=== PATIENT | female | born 1960 | race Caucasian/White ===

== ENCOUNTER 2017-03-21 09:09 | Emergency (ER) | payer MEDICARE, SELFPAY | END 2017-03-21 12:45 | disposition home or self-care (01) | PROVIDERS: Emergency Provider Emergency Medicine; Family Provider Internal Medicine Cardiovascular Disease; Visit Provider Emergency Medicine | DX: J44.1 Chronic obstructive pulmonary disease with (acute) exacerbation (principal); F17.210 Nicotine dependence, cigarettes, uncomplicated | CPT/HCPCS: 71020; 80053; 85025; 87040; 87070; 87275; 87276; 87430; 94640; 96374; 96375; 99284 ==

== ENCOUNTER 2019-07-03 15:40 | Emergency (ER) | payer MEDICARE, SELFPAY ==
[2019-07-03] VITALS (7 sets, daily range): BP systolic 90–121; BP diastolic 53–87; PULSE 100–120; RESP 16–24; TEMP 35.5–36.5; O2SAT 91–100; BMI 15.0
--- NOTE | 2019-07-03 15:44 | XR_ITS ---
PROCEDURE: XR CHEST PORTABLE CLINICAL HISTORY: SHORTNESS OF BREATH COMPARISON: CXR CHEST(2 VIEWS-NOT PORTABLE) from 03/21/2017 CXR2V XR chest 2V from 05/01/2018 FINDINGS: The cardiomediastinal silhouette and pulmonary vascularity are within normal limits. Changes of COPD. There is some patchy density in the right upper lobe centrally and may be due to an area of atelectasis or infiltrate. There is scarring in the right apex. Bilateral nipple shadows are present No acute bony abnormalities. IMPRESSION: COPD with chronic changes with patchy atelectasis or infiltrate versus fibrotic change in the right upper lobe Dictated by: Checo Ruiz MD 07/03/2019 16:11 Electronically signed by Checo Ruiz MD in [place] 07/03/2019 16:11
[2019-07-03 16:41] LABS: Basophils % 0.1 % (0.1-2.0); Eosinophils # 0.1 K/mm3 (0.0-0.4); Eosinophils % 0.5 % (0.1-12.0); Hematocrit 42.7 % (37.0-47.0); Hemoglobin 14.1 g/dL (12.2-16.2); Lymphocytes # 0.3 K/mm3 (0.7-4.5); Lymphocytes % 2.1 % (10-50); Mean Corpuscular HGB Conc 32.9 g/dL (31.8-35.4); Mean Corpuscular Hemoglobin 31.9 pg (27.0-31.2); Mean Corpuscular Volume 96.8 fl (81-99); Mean Platelet Volume 8.7 fl (7.4-10.4); Monocytes # 0.5 K/mm3 (0.1-1.0); Monocytes % 3.6 % (1.7-9.3); Neutrophils # 12.8 K/mm3 (1.8-7.8); Neutrophils % 93.7 % (37.0-80.0); Platelet Count 260 K/mm3 (142-424); Red Blood Count 4.41 M/mm3 (4.20-5.40); Red Cell Distribution Width 12.9 % (11.5-17.5); White Blood Count 13.7 K/mm3 (4.8-10.8)
[2019-07-03 16:43] LABS: MANUAL DIFFERENTIAL MANUAL DIFFERENTIAL (MANUAL DIFF)
[2019-07-03 16:59] LABS: Lymphocytes % 5 % (10-50); Monocytes % 1 % (2-9); Neutrophils % 94 % (42-76); Platelet Estimate Normal; RBC Morphology Normal; Total Cells Counted 100
[2019-07-03 17:05] LABS: Albumin Level 3.9 g/dl (3.5-5.0); Albumin/Globulin Ratio 1.5 (1.1-1.8); Alkaline Phosphatase 79 U/L (38-126); Aspartate Amino Transferase 51 U/L (14-36); Bilirubin,Total 0.4 mg/dl (0.2-1.3); Blood Urea Nitrogen 27 mg/dl (7-17); Calcium 8.8 mg/dl (8.4-10.2); Chloride 88 mmol/L (98-107); Creatinine Clearance Estimated 114 mL/min (50-200); Estimated Glomerular Filt Rate 227 ml/min (>60); GFR (African American) 275 ML/MIN (>60); Globulin 2.6 g/dL (1.3-3.2); Glucose 129 mg/dl (74-100); Potassium 4.3 mmoL/L (3.5-5.1); Sodium 135 mmol/L (136-145); Total Protein,Serum 6.5 g/dl (6.3-8.2)
--- NOTE | 2019-07-03 17:16 | HMH.EDGENADL ---
ED Disposition Condition on Discharge: Good - Critical Care Critical Care Time: No <Fabricio Dillon O - Last Filed: 07/03/19 20:47> <Sharath Mariano - Last Filed: 07/04/19 07:41> Clinical Impression: Shortness of breath, Acute exacerbation of chronic obstructive airways disease Disposition: Home, Self-Care Instructions: DI for Chronic Obstructive Pulmonary Disease Additional Instructions: see pcp for follow up Referrals: Provider,Referral, MD [Primary Care Provider] - Attestation: On 07/03/19, the high probability of a clinically significant, sudden or life threatening deterioration of the following system(s) required my full and direct attention, intervention and personal management. The time I documented below is in addition to time spent performing reported procedures but includes the following listed in this critical care notation. Medical Decision Making - Alo Inquiry Pt receiving controlled substance: No Alo was queried for this patient: No - Lab Data Result diagrams: 07/03/19 16:24 07/03/19 16:24 <Fabricio Dillon - Last Filed: 07/03/19 20:47> - Lab Data Result diagrams: 07/03/19 16:24 07/03/19 16:24 <Sharath Mariano S - Last Filed: 07/04/19 07:41> Vital Signs: 07/03/19 15:40 07/03/19 16:12 07/03/19 18:00 Temperature 96 F L 97.7 F Temperature Source Oral Oral Pulse Rate [Right Radial] 110 H 120 H Respiratory Rate 17 24 Blood Pressure [Right Arm] 121/79 107/87 L Blood Pressure Mean [Right Arm] 93 93 Blood Pressure Source [Right Arm] Automatic Cuff Blood Pressure Position [Right Arm] Sitting 02 Sat by Pulse Oximetry 91 L 92 L Oxygen Delivery Method Nasal Cannula Nasal Cannula Oxygen Flow Rate (LPM) 2 3 07/03/19 19:57 07/03/19 20:30 07/03/19 21:22 Temperature Temperature Source Pulse Rate [Right Radial] 108 H 102 H 100 H Respiratory Rate 16 16 16 Blood Pressure [Right Arm] 99/68 L 98/59 L 90/53 L Blood Pressure Mean [Right Arm] 78 72 65 Blood Pressure Source [Right Arm] Blood Pressure Position [Right Arm] 02 Sat by Pulse Oximetry 100 100 100 Oxygen Delivery Method Room Air Room Air Room Air Oxygen Flow Rate (LPM) 04/10/20 22:40 07/04/19 00:00 07/04/19 01:00 Temperature Temperature Source Pulse Rate [Right Radial] 101 H 94 H 90 Respiratory Rate 18 16 16 Blood Pressure [Right Arm] 109/59 L 106/58 L 96/61 L Blood Pressure Mean [Right Arm] 75 74 72 Blood Pressure Source [Right Arm] Blood Pressure Position [Right Arm] 02 Sat by Pulse Oximetry 96 98 100 Oxygen Delivery Method Nasal Cannula Nasal Cannula Nasal Cannula Oxygen Flow Rate (LPM) 2 2 2 07/04/19 02:00 07/04/19 03:00 07/04/19 04:00 Temperature Temperature Source Pulse Rate [Right Radial] 100 H 97 H 98 H Respiratory Rate 16 16 16 Blood Pressure [Right Arm] 91/62 L 101/60 L 91/74 L Blood Pressure Mean [Right Arm] 71 73 79 Blood Pressure Source [Right Arm] Blood Pressure Position [Right Arm] 02 Sat by Pulse Oximetry 100 99 100 Oxygen Delivery Method Nasal Cannula Nasal Cannula Nasal Cannula Oxygen Flow Rate (LPM) 2 2 2 07/04/19 05:00 07/04/19 06:00 07/04/19 06:33 Temperature 98.3 F Temperature Source Oral Pulse Rate [Right Radial] 90 94 H Respiratory Rate 16 16 Blood Pressure [Right Arm] 96/67 L 98/77 L Blood Pressure Mean [Right Arm] 76 84 Blood Pressure Source [Right Arm] Blood Pressure Position [Right Arm] 02 Sat by Pulse Oximetry 98 98 Oxygen Delivery Method Nasal Cannula Nasal Cannula Oxygen Flow Rate (LPM) 2 2 - Lab Data Lab Results 07/03/19 16:00: Influenza Type A Ag Negative, Influenza Type B Ag Negative 07/03/19 16:24: WBC 13.7 H, RBC 4.41, Hgb 14.1, Hct 42.7, MCV 96.8, MCH 31.9 H, MCHC 32.9, RDW 12.9, Plt Count 260, MPV 8.7, Neut % (Auto) 93.7 H, Lymph % (Auto) 2.1 L, [place] % (Auto) 3.6, Eos % (Auto) 0.5, Baso % (Auto) 0.1, Neut # (Auto) 12.8 H, Lymph # (Auto) 0.3 L, [place] # (Auto) 0.5, Eos # (Auto) 0.1, Baso # (Auto) 0.
[2019-07-03 17:17] LABS: Alanine Aminotransferase 97 U/L (12-78)
[2019-07-03 17:25] LABS: Anion Gap 13.3 mEq/L (5-15); Carbon Dioxide 38 mmol/L (22.0-30.0)
[2019-07-03 17:31] LABS: Troponin I 0.02 ng/ml (0.00-0.034)
[2019-07-03 18:18] LABS: Lactic Acid 1.4 mmol/L (0.7-2.1)
[2019-07-03 18:30] LABS: Troponin I 0.03 ng/ml (0.00-0.034)
--- NOTE | 2019-07-03 18:30 | PC.NURSE ---
CALLED PT'S VINITA BECAUSE PT STATED THAT HE WOULD PICK HER UP. VINITA ADVISED THAT HE COULD NOT BUT HE WOULD RETURN OUR CALL WITH THE DAUGHTER'S PHONE NUMBER SO WE COULD CALL HER.
--- NOTE | 2019-07-03 18:47 | PC.NURSE ---
SULMA SNEED CALLED DAUGHTER AND DAUGHTER ADVISES THAT SHE WILL NOT BE COMING TO PRE PRESS PROOFER HER MOTHER.
--- NOTE | 2019-07-03 18:59 | PC.NURSE ---
PAGING DR SCHUMACHER
--- NOTE | 2019-07-03 19:40 | PC.NURSE ---
spoke with jarred rider in care management who stated she spoke with ems about transporting the patient and they denied the transfer due to lack of medical necessity. She stated she also reached out to the pt's pcp for suggestions and has not heard back from physician
--- NOTE | 2019-07-03 21:14 | PC.NURSE ---
per MD and care management, pt will board overnight in the ED and care management will be here at 0900 to make arrangements for patients transfer home.
--- NOTE | 2019-07-03 21:20 | PC.NURSE ---
Addendum entered by KRYSTINA Lugo 07/04/19 05:09: spoke with patient about departure plan. pt is aware that care management will be to ed at 0900 to arrange transportation for pt back home. Original Note: pt provided with tv remote and a drink. pt aware with departure plan
--- NOTE | 2019-07-03 21:30 | PC.NURSE ---
pt alert,oriented, x4. verbal with clear speech. no hearing deficits noted. no visual deficits. resp e/u. lungs cta. abd soft, nt/nd. bs +x4 quads. denies dysuria. denies any issues with bowel movements. pt states she is independent at home with her adl's and ambulation. understands the plan of care listed in chart and discussed with her by the er physician. offered snacks and drinks. remote and call light in place. denies additional needs. no acute distress observed.
[2019-07-04] VITALS (10 sets, daily range): BP systolic 91–128; BP diastolic 55–79; PULSE 60–100; RESP 16–18; TEMP 36.6–36.8; O2SAT 98–100
--- NOTE | 2019-07-04 00:01 | PC.NURSE ---
called to patient's room via call light. pt requested a bedpan so she didn't have to get up. voided approx 350ml. noted urine to clothing. assisted to change into gown, and new sheets/blankets provided. pt thankful. call light at bedside. no additional requests at this time. no acute distress observed
--- NOTE | 2019-07-04 02:15 | PC.NURSE ---
pt continues to rest without complaint. no issues noted. cb remains in reach at all times.
--- NOTE | 2019-07-04 03:17 | PC.NURSE ---
pt resting. no acute distress observed. vss. resp e/u.
--- NOTE | 2019-07-04 04:12 | PC.NURSE ---
pt remains asleep. resp e/u. no acute distress. vss.
--- NOTE | 2019-07-04 05:06 | PC.NURSE ---
pt resting comfortably.
--- NOTE | 2019-07-04 06:33 | PC.NURSE ---
pt provided with breakfast tray
--- NOTE | 2019-07-04 08:00 | PC.NURSE ---
pt resting comfortably in stretcher eating breakfast at this time. pt pending dc home upon case management arrival to hospital to find ride. will monitor for change.
--- NOTE | 2019-07-04 10:02 | PC.NURSE ---
Pt is sleeping at this time.
--- NOTE | 2019-07-04 10:54 | PC.NURSE ---
per jarred rider, cab to arrive to ed to drive patient home. pt provided with clothes/pants, o2 tank/cannula and placed in wheelchair to await cab arrival. pt tolerated well.
== END 2019-07-04 10:56 | disposition home or self-care (01) ==
PROVIDERS: Emergency Provider Emergency Medicine
DX: J44.1 Chronic obstructive pulmonary disease with (acute) exacerbation (principal); R73.9 Hyperglycemia, unspecified; F17.210 Nicotine dependence, cigarettes, uncomplicated; Z99.81 Dependence on supplemental oxygen; Z79.899 Other long term (current) drug therapy
CPT/HCPCS: 36415; 71045; 80053; 83605; 84484; 85007; 85025; 87040; 87275; 87276; 93005; 96365; 96367; 96375; 99284

== ENCOUNTER 2019-07-06 12:12 | Inpatient (IN) | payer MEDICARE, SELFPAY ==
[2019-07-06 12:03] VITALS: BP 114/67; PULSE 102; RESP 22; TEMP 36.8; O2SAT 96; BMI 12.9
--- NOTE | 2019-07-06 12:09 | HMH.EDGENADL ---
ED Disposition Clinical Impression: Acute exacerbation of chronic obstructive airways disease, Chronic respiratory failure with hypoxia Failure to thrive Qualifiers: Failure to thrive age range: in adult Qualified Code(s): R62.7 - Adult failure to thrive Malnutrition Qualifiers: Malnutrition type: protein-calorie malnutrition Protein-calorie malnutrition severity: moderate Qualified Code(s): E44.0 - Moderate protein-calorie malnutrition Disposition: Still a Patient Condition on Discharge: Fair Time of Disposition: 13:51 - Critical Care Critical Care Time: No Attestation: On , the high probability of a clinically significant, sudden or life threatening deterioration of the following system(s) required my full and direct attention, intervention and personal management. The time I documented below is in addition to time spent performing reported procedures but includes the following listed in this critical care notation. Medical Decision Making - Alo Inquiry Pt receiving controlled substance: No Vital Signs: 07/06/19 12:03 07/06/19 14:45 Temperature 98.3 F 98.3 F Temperature Source Oral Oral Pulse Rate 102 H Pulse Rate [Radial] 102 H Respiratory Rate 22 22 Blood Pressure 114/67 Blood Pressure [Right Arm] 114/67 Blood Pressure Mean [Right Arm] 82 Blood Pressure Source Automatic Cuff Blood Pressure Source [Right Arm] Automatic Cuff Blood Pressure Position Sitting Blood Pressure Position [Right Arm] Sitting 02 Sat by Pulse Oximetry 96 Oxygen Delivery Method Nasal Cannula Nasal Cannula Oxygen Flow Rate (LPM) 2 2 - Lab Data Lab Results 07/06/19 12:08: Specimen Source Left radial, O2 % 3l, ABG pH 7.32 L, ABG pCO2 89.0 H, ABG pO2 170.4 H, ABG HCO3 44.4 H, ABG Total CO2 47.1 H, ABG O2 Saturation 99, ABG Base Excess 18.3 H 07/06/19 12:19: WBC 7.2 D, RBC 4.27, Hgb 12.9, Hct 42.3, MCV 99.0, MCH 30.2, MCHC 30.5 L, RDW 13.3, Plt Count 248, MPV 8.0, Neut % (Auto) 88.6 H, Lymph % (Auto) 4.6 L, [place] % (Auto) 5.8, Eos % (Auto) 1.0, Baso % (Auto) 0.1, Neut # (Auto) 6.4, Lymph # (Auto) 0.3 L, [place] # (Auto) 0.4, Eos # (Auto) 0.1, Baso # (Auto) 0.0, Total Counted 100, Neutrophils % (Manual) 93 H, Lymphocytes % (Manual) 5 L, Monocytes % (Manual) 2, Platelet Estimate Normal, RBC Morphology Normal 07/06/19 12:19: Sodium 138, Potassium 4.2, Chloride 90 L, Carbon Dioxide 48 H* D, Anion Gap 4.2 L, BUN 16 D, Creatinine 0.30 L, Estimated Creat Clear 114, Estimated GFR 227, Est GFR ( Amer) 275, Glucose 89, Calcium 8.1 L, Total Bilirubin 0.4, AST 27 D, ALT 47 D, Alkaline Phosphatase 62, Troponin I < 0.01, Total Protein 5.8 L, Albumin 3.4 L, Globulin 2.4, Albumin/Globulin Ratio 1.4 07/06/19 13:35: Influenza Type A Ag Negative, Influenza Type B Ag Negative 07/06/19 13:35: Group A Strep Rapid Negative Result diagrams: 07/06/19 12:19 07/06/19 12:19 Orders (Tests/Meds): ED MEDICATIONS Generic Name Dose Route Start Last Admin Trade Name Freq PRN Reason Stop Dose Admin Acetaminophen 325 mg 07/06/19 14:34 Acetaminophen 325mg Tab PO 08/05/19 14:33 Q4HP PRN As Needed for Fever or Pain Albuterol Sulfate 2.5 mg 07/06/19 14:43 Albuterol 0.083% 2.5mg/3ml Neb IH 08/05/19 14:33 Q6HP PRN SOA Albuterol/Ipratropium 2 puff 07/06/19 14:34 Combivent Respimat 20mcg/100mcg Inhaler IH 08/05/19 14:33 Q6HP PRN Shortness Of Breath Or Wheezing Sodium Chloride 1,000 mls @ 150 mls/hr 07/06/19 14:34 Sod Chlor 0.9% 1000ml Bag IV 08/05/19 14:33 .Q6H40M IONA Ibuprofen 400 mg 07/06/19 14:34 Motrin 400mg Tablet PO 08/05/19 14:33 Q6HP PRN Mild Pain Ondansetron HCl 4 mg 07/06/19 14:34 Zofran 4mg/2ml Vial IV 08/05/19 14:33 Q8HP PRN Nausea Pantoprazole Sodium 40 mg 07/07/19 09:00 Protonix 40mg Tablet PO 08/06/19 08:59 DAILY IONA Discontinued Medications Generic Name Dose Route Start Last Admin Trade Name Freq PRN Reason Stop Dose A
--- NOTE | 2019-07-06 12:10 | PC.NURSE ---
placed call to Case Management for consult.
[2019-07-06 12:33] LABS: ABG Base Excess 18.3 mmol/L (-2.4-2.3); ABG HCO3 44.4 mmhg (22.0-26.0); ABG Oxygen Saturation 99 % (90-100); ABG PH 7.32 mmol/L (7.35-7.45); ABG PO2 170.4 mmhg (80-100); ABG TCO2 47.1 mmhg (23-27)
[2019-07-06 12:34] LABS: Basophils % 0.1 % (0.1-2.0); Eosinophils # 0.1 K/mm3 (0.0-0.4); Hematocrit 42.3 % (37.0-47.0); Hemoglobin 12.9 g/dL (12.2-16.2); Lymphocytes # 0.3 K/mm3 (0.7-4.5); Lymphocytes % 4.6 % (10-50); Mean Corpuscular HGB Conc 30.5 g/dL (31.8-35.4); Mean Corpuscular Hemoglobin 30.2 pg (27.0-31.2); Monocytes # 0.4 K/mm3 (0.1-1.0); Monocytes % 5.8 % (1.7-9.3); Neutrophils # 6.4 K/mm3 (1.8-7.8); Neutrophils % 88.6 % (37.0-80.0); Platelet Count 248 K/mm3 (142-424); Red Blood Count 4.27 M/mm3 (4.20-5.40); Red Cell Distribution Width 13.3 % (11.5-17.5); White Blood Count 7.2 K/mm3 (4.8-10.8)
[2019-07-06 12:37] LABS: MANUAL DIFFERENTIAL MANUAL DIFFERENTIAL (MANUAL DIFF)
[2019-07-06 12:38] LABS: Chloride 90 mmol/L (98-107); Potassium 4.2 mmoL/L (3.5-5.1); Sodium 138 mmol/L (136-145)
[2019-07-06 12:39] LABS: Oxygen 3L %; Source Left Radial
[2019-07-06 12:41] LABS: Alanine Aminotransferase 47 U/L (12-78); Albumin Level 3.4 g/dl (3.5-5.0); Albumin/Globulin Ratio 1.4 (1.1-1.8); Alkaline Phosphatase 62 U/L (38-126); Aspartate Amino Transferase 27 U/L (14-36); Bilirubin,Total 0.4 mg/dl (0.2-1.3); Blood Urea Nitrogen 16 mg/dl (7-17); Calcium 8.1 mg/dl (8.4-10.2); Creatinine Clearance Estimated 114 mL/min (50-200); Estimated Glomerular Filt Rate 227 ml/min (>60); GFR (African American) 275 ML/MIN (>60); Globulin 2.4 g/dL (1.3-3.2); Glucose 89 mg/dl (74-100); Total Protein,Serum 5.8 g/dl (6.3-8.2)
[2019-07-06 12:44] LABS: Lymphocytes % 5 % (10-50); Monocytes % 2 % (2-9); Neutrophils % 93 % (42-76); Platelet Estimate Normal; RBC Morphology Normal; Total Cells Counted 100
[2019-07-06 12:49] LABS: Anion Gap 4.2 mEq/L (5-15)
[2019-07-06 12:50] LABS: Carbon Dioxide 48 mmol/L (22.0-30.0)
--- NOTE | 2019-07-06 12:53 | PC.NURSE ---
Notified MD seo criticals/G
[2019-07-06 12:56] LABS: Troponin I < 0.01 ng/ml (0.00-0.034)
--- NOTE | 2019-07-06 12:58 | XR_ITS ---
PROCEDURE: XR CHEST PORTABLE CLINICAL HISTORY: cough COMPARISON: CXR CHEST(2 VIEWS-NOT PORTABLE) from 03/21/2017 CXR2V XR chest 2V from 05/01/2018 XR CHEST PORTABLE from 07/03/2019 FINDINGS: The cardiomediastinal silhouette and pulmonary vascularity are within normal limits. COPD with hyperinflation and chronic changes. There is a small right pleural effusion with slight increased density in the right lung base and may be due to patchy atelectasis or infiltrate. There are chronic changes in the right upper lobe. No acute bony abnormalities. IMPRESSION: COPD with chronic changes with minimal atelectasis or infiltrate in the right lung base and small right effusion Dictated by: Checo Ruiz MD 07/06/2019 14:00 Electronically signed by Checo Ruiz MD in [place] 07/06/2019 14:00
--- NOTE | 2019-07-06 13:10 | SW/DCPLANNER ---
Addendum entered by Rebecca Cortez 07/06/19 13:50: This case has also met criteria per Central Intake and will be assigned to a family preservation caseworker. Addendum entered by Rebecca Cortez 07/06/19 13:49: Per ED staff this patient is being tested for COVID19 and will be admitted. I have informed Central Intake of this situation as well. Original Note: I have been contacted by ED staff regarding patients second ED visit within two days. Patient arrived at ED on 07/03/2019 and was unable to obtain a ride home until CM was able to assist the next morning via [employer]. During both 07/03/2019 and 07/06/2019 ED visits patient has been covered in urine and in deplorable conditions per staff. EMS stated on 07/03/2019 that they had been contacted to go to this patients home three separate times within 24 hours regarding assistance with home O2/power outage. Patient ED visit was for shortness of breath on 07/03/2019 and on 07/06/2019 visit was for hungry and shortness of breath. ED MD is unsure of hospital admission at this point but could foresee discharge from ED. I have reported this case to Central Intake: ID#[id number]. I will continue to follow up with ED staff and Central Intake regarding this patient.
--- NOTE | 2019-07-06 13:11 | PC.NURSE ---
Attempted to in and out cath patient and was unsuccessful. notified.
[2019-07-06 13:35] VITALS: BP 101/76; PULSE 112; RESP 20; TEMP 36.9; O2SAT 100
[2019-07-06 13:51] LABS: Strep Scrn Group A (Rapid) Negative (Negative)
--- NOTE | 2019-07-06 14:05 | PC.NURSE ---
SPEAKING WITH DR DIAZ AT THIS TIME.
--- NOTE | 2019-07-06 14:09 | PC.NURSE ---
CALLED ADVOCACY DIRECTOR FOR A BED ASSIGNMENT. SHE ADVISED SHE WILL CALL BACK.
--- NOTE | 2019-07-06 14:20 | PC.NURSE ---
PT BEING ADMITTED TO ROOM 263
[2019-07-06 14:26] VITALS: BMI 13.1
--- NOTE | 2019-07-06 14:34 | PC.NURSE ---
Report called to AILEEN Roldan.
[2019-07-06 14:45] VITALS: BP 114/67; PULSE 102; RESP 22; TEMP 36.8; O2SAT 96
--- NOTE | 2019-07-06 14:46 | HMH.PHAVTE ---
[facility] Pharmacy VTE Monitoring - Patient Demographics Admission date: 07/06/19 Report Date: 07/06/19 Time: 14:46 Allergies/Adverse Reactions: Patient Allergies No Known Allergies Allergy (Verified 07/03/19 15:44) Height: 1.68 m Weight: 36.287 kg Patient Problems: Current Active Problems Acute exacerbation of chronic obstructive airways disease (Acute) Chronic respiratory failure with hypoxia (Acute) Failure to thrive (Acute) Malnutrition (Acute) - VTE Risk Labs: VTE Related Lab Results Hgb 12.9 g/dL (12.2-16.2) 07/06/19 12:19 Hct 42.3 % (37.0-47.0) 07/06/19 12:19 Plt Count 248 K/mm3 (142-424) 07/06/19 12:19 BUN 16 mg/dl (7-17) D 07/06/19 12:19 Creatinine 0.30 mg/dl (0.52-1.04) L 07/06/19 12:19 Estimated Creat Clear 114 mL/min (50-200) 07/06/19 12:19 Clinical Trial Participant: No - Prophylaxis VTE Prophylaxis Ordered?: Yes Types of VTE Prophylaxis: TEDS Knee High
--- NOTE | 2019-07-06 15:52 | PC.NURSE ---
PATIENT ARRIVED ON FLOOR VIA STRETCHER. PATIENT STATED SHE IS VERY HUNGRY AND THEY TOOK HER FOOD AWAY DOWNSTAIRS AND WANTS FOOD IN HER NEW ROOM. THIS RN INFORMED PATIENT THAT HER FOOD WAS ALREADY ON THE WAY. PATIENT STATED THAT SHE HAS NO MEDICAL HISTORY OTHER THAN COPD. WHEN ASKED IN REGARDS TO MEDICATIONS THAT PATIENT TAKES AT HOME. PATIENT STATED I ONLY USE MY INHALER AND A BABY ASPIRIN. THIS RN INQUIRED WHY SHE TOOK AN ASPIRIN, PATIENT STATED FOR MY HEART. PATIENT'S O2 IS 100% ON 2L NC. A& O X 4, LUNGS ARE DIMINSHED AND DIFFICULT TO ASSESS DUE TO PATIENT SOUNDING A LOUD HUM AT THE END OF EACH DEEP BREATH. SKIN IS INTACT. PATIENT APPEARS CACHECTIC AND WEAK. PATIENT STATES THAT SHE CHOKES ON FOOD WHEN SHE EATS. THIS RN PERFORMED A BEDSIDE SWALLOW TEST AND PATIENT TOLERATED WELL. NO COUGHING OR CHOKING NOTED. WHEN PATIENT'S FOOD ARRIVED PATIENT BEGAN EATING RAPIDLY. THIS RN ENCOURAGED PATIENT TO EAT SLOWER AND TAKE SMALLER BITES. PATIENT VERBALIZED AN UNDERSTANDING. NO OTHER CONCERNS AT THIS TIME.
[2019-07-06 16:00] VITALS: BP 101/66; PULSE 100; PULSE 110; RESP 20; O2SAT 99
[2019-07-06 16:23] VITALS: BMI 13.3
--- NOTE | 2019-07-06 17:23 | HMH.HP ---
*Admission Date: 07/06/19 *Chief complaint: Cough/shortness of air *History of present illness: In summary this is a 58-year-old female presenting to the emergency department shortness of breath. Patient is wheezing on arrival to the emergency department, using accessory muscles. She is tachycardic to 102. Oxygen saturations are appropriate with 2 L by nasal cannula. Differential diagnoses include COPD exacerbation, pneumonia, bronchitis, medication noncompliance, failure to thrive, urinary tract infection. Plan to obtain CBC, CMP, ABG, chest x-ray, EKG, troponin profile and reassess. Patient to use her albuterol MDI. Given 125 mg of IV Solu-Medrol, 1 g of Rocephin. Laboratory results show acidosis with pH of 7.3, CO2 significantly elevated at 89. Chest x-ray shows emphysematous changes but also slight bilateral lower lobe opacities. I have concern for COVID 19, will obtain test. She will require hospitalization for acute hypoxic respiratory failure and COPD exacerbation. Also failure to thrive. Social work and Adult Protective Services contacted. Patient was allowed to eat in the emergency department. Hospital medicine, Dr. Laguna consulted and he graciously accepted the admission. Above note per emergency department. Essentially patient is a 58-year-old white female with severe protein calorie malnutrition, lives by herself and [place], [place] and has not been eating well over the past several weeks. Several visits to the ER, 1 prescription for antibiotics, has failed to improve. Came back to the hospital, acute on chronic respiratory failure, admitted to isolation for coronavirus 19 rule out and IV antibiotics and nutritional support. [facility] History I have reviewed the patient's past medical history: Yes Medical History: Reports:: Chronic Obstructive Pulmonary Disease (COPD), Home Oxygen Denies:: Cancer, Diabetes Mellitus Type 1, Diabetes Mellitus Type 2, MRSA *Have you ever received a pneumonia vaccine?: Yes *Have you received a flu vaccine this season?: Yes Other Surgeries: Yes: Amputation: No Fractures: No - *Social History Educational Level: Attended High School Smoking Status: Never smoker # Packs/Day (cigarettes): 1 #Yrs smoked (if former smoker): 30 Alcohol Intake: former Alcohol Intake Frequency:: holidays/special occasions only *Occupational Status:: retired *Travel in the last 8 weeks: None Family Hx:: No significant family history Review of Systems - Review of Systems Review of systems:: pertinent systems reviewed and negative unless documented below - *Neurologic Reports weakness, Denies headache(s), Denies numbness, Denies fainting Meds Home Medications Medication Instructions Recorded Confirmed Type Albuterol Sulfate [Albuterol 2.5 mg IH Q4HP PRN 05/01/18 07/06/19 History 0.083% 2.5mg/3mL neb] Albuterol Sulfate [Albuterol HFA 2 puff IH Q4HP PRN 07/06/19 07/06/19 History Inhaler] Allergies Allergy/AdvReac Type Severity Reaction Status Date / Time No Known Allergies Allergy Verified 07/03/19 15:44 Exam Vital signs and Labs for Last 24 Hours: Temp Pulse Resp BP Pulse Ox 98.3 F 110 H 20 101/66 L 99 07/06/19 14:45 07/06/19 16:00 07/06/19 16:00 07/06/19 16:00 07/06/19 16:00 Laboratory Results - last 24 hr 07/06/19 12:08: Specimen Source Left radial, O2 % 3l, ABG pH 7.32 L, ABG pCO2 89.0 H, ABG pO2 170.4 H, ABG HCO3 44.4 H, ABG Total CO2 47.1 H, ABG O2 Saturation 99, ABG Base Excess 18.3 H 07/06/19 12:19: WBC 7.2 D, RBC 4.27, Hgb 12.9, Hct 42.3, MCV 99.0, MCH 30.2, MCHC 30.5 L, RDW 13.3, Plt Count 248, MPV 8.0, Neut % (Auto) 88.6 H, Lymph % (Auto) 4.6 L, [place] % (Auto) 5.8, Eos % (Auto) 1.0, Baso % (Auto) 0.1, Neut # (Auto) 6.4, Lymph # (Auto) 0.3 L, [place] # (Auto) 0.4, Eos # (Auto) 0.1, Baso # (Auto) 0.0, Total Counted 100, Neutrophils % (Manual) 93 H, Lymphocytes % (Manual) 5 L, Monocytes % (Manual) 2, Platelet Estimate Normal, RBC Morphology No
--- NOTE | 2019-07-06 17:58 | PC.NURSE ---
PATIENT REQUESTED TO TAKE HER OWN MEDICATIONS. THIS RN INQUIRED ABOUT HOME MEDICATIONS IN PATIENT'S PURSE. PATIENT REFUSED TO ALLOW THIS RN TO SEE IN PURSE AND STATED YOU CAN NOT SEE MY MEDICATIONS. THIS RN ADMINISTERED HOSPITAL INHALER AND PLACE PATIENT'S PURSE ON DRESSER IN ROOM. THIS RN EDUCATED PATIENT IN REGARDS TO NOT TAKE OWN MEDICATIONS WHILE IN HOSPITAL. PATIENT VERBALIZED AN UNDERSTANDING.
[2019-07-06 19:52] VITALS: BP 124/73; PULSE 108; RESP 16; TEMP 36.5; O2SAT 96
[2019-07-06 21:30] VITALS: O2SAT 96
--- NOTE | 2019-07-07 02:18 | PC.NURSE ---
Addendum entered by Cynthia Cai RN 07/07/19 02:40: REMAINED IN [place]/CONTACT W/ EYE PROTECTION ISOLATION PRECAUTIONS THIS SHIFT. Original Note: A&OX3. CONCRETE CONVEYOR OPERATOR EQUAL BILAT. LUNGS CLEAR BUT DIMINISHED PER AUSCULTATION. TOLERATED 2LNC WELL. PT O2SAT REMAINED >95% ON 2LNC. EXPLAINED TO PT OF COPD PATIENTS RETAINING CO2 WITH OXYGEN USE AND IF OXYGEN WAS NOT NEEDED, IN THIS CASE HER OXYGEN IS 96%-100% WITH THE 2LNC, WE COULD TRY TO WEAN OFF OXYGEN. PT STATED OKAY, YOU CAN TRY TO REMOVE IT. REMOVED 2LNC, LEFT AT BEDSIDE AND TOLD PT, IF NEEDED, PT CAN REAPPLY OXYGEN. LESS THAN 15 MIN ON REASSESSMENT FROM REMOVING OXYGEN PT HAD REAPPLIED INDEPENDENTLY. PULSES +2, CAP REFILL <3 SEC. ABDOMEN FLAT, ACTIVE BOWEL SOUNDS, SOFT AND NONTENDER PER PALPATION. NO BM NOTED THIS SHIFT. ENCOURAGED TO TURN AND REPOSITION INDEPENDENTLY THIS SHIFT. PT IS ABLE TO INDEPENDENTLY REPOSITION SELF IN BED, BUT NEEDS REMINDING AND ENCOURAGING. URINARY INCONTINENCE NOTED AT BEGINNING OF SHIFT. PT HAS REMAINED IN A NEGATIVE PRESSURE ROOM AND APPROPRIATE PPE HAS BEEN DONNED BY STAFF THIS SHIFT. VSS. WILL CONTINUE TO MONITOR.
[2019-07-07 04:00] VITALS: BP 108/67; PULSE 89; RESP 18; TEMP 36.9; O2SAT 100
--- NOTE | 2019-07-07 04:45 | PC.NURSE ---
PT C/O PAIN IN ABDOMEN, REPORTED PAIN A MILD PRESSURE. ALSO, C/O SOA AT THIS TIME. O2SAT NOTED 96% WITH 2LNC, ADMINISTERED PRN INHALER PER MAY.
--- NOTE | 2019-07-07 05:15 | PC.NURSE ---
PAIN AND SOA REASSESSED AT THIS TIME PT STATES I FEEL BETTER. O2SAT NOTED 97% ON 2LNC. PT RESTING IN BED, CALMLY WATCHING TV AT THIS TIME.
[2019-07-07 05:22] VITALS: BMI 14.3
[2019-07-07 06:29] LABS: Basophils % 0.1 % (0.1-2.0); Eosinophils % 0.2 % (0.1-12.0); Hematocrit 36.1 % (37.0-47.0); Lymphocytes # 0.4 K/mm3 (0.7-4.5); Lymphocytes % 4.9 % (10-50); Mean Corpuscular HGB Conc 30.5 g/dL (31.8-35.4); Mean Corpuscular Hemoglobin 30.6 pg (27.0-31.2); Mean Corpuscular Volume 100.3 fl (81-99); Mean Platelet Volume 9.2 fl (7.4-10.4); Monocytes # 0.5 K/mm3 (0.1-1.0); Monocytes % 6.4 % (1.7-9.3); Neutrophils # 6.9 K/mm3 (1.8-7.8); Neutrophils % 88.3 % (37.0-80.0); Platelet Count 245 K/mm3 (142-424); Red Cell Distribution Width 13.3 % (11.5-17.5); White Blood Count 7.8 K/mm3 (4.8-10.8)
[2019-07-07 06:42] LABS: Alanine Aminotransferase 30 U/L (12-78); Albumin Level 2.9 g/dl (3.5-5.0); Albumin/Globulin Ratio 1.3 (1.1-1.8); Alkaline Phosphatase 63 U/L (38-126); Aspartate Amino Transferase 23 U/L (14-36); Bilirubin,Total 0.2 mg/dl (0.2-1.3); Blood Urea Nitrogen 17 mg/dl (7-17); Calcium 7.6 mg/dl (8.4-10.2); Chloride 95 mmol/L (98-107); Creatinine Clearance Estimated 109 mL/min (50-200); Estimated Glomerular Filt Rate 227 ml/min (>60); GFR (African American) 275 ML/MIN (>60); Globulin 2.3 g/dL (1.3-3.2); Glucose 72 mg/dl (74-100); Magnesium 2.1 mg/dl (1.6-2.3); Potassium 3.8 mmoL/L (3.5-5.1); Sodium 136 mmol/L (136-145); Total Protein,Serum 5.2 g/dl (6.3-8.2)
[2019-07-07 06:48] LABS: Anion Gap 5.8 mEq/L (5-15); Carbon Dioxide 39 mmol/L (22.0-30.0)
[2019-07-07 06:55] LABS: Hemoglobin 11.1 g/dL (12.2-16.2)
[2019-07-07 06:57] LABS: MANUAL DIFFERENTIAL MANUAL DIFFERENTIAL (MANUAL DIFF)
--- NOTE | 2019-07-07 07:21 | HMH.PHAINT ---
MEDICATION RECONCILIATION COMPLETED ON PATIENT USING EXTERNAL FILL HISTORY FROM PHARMACY. -DUGLAS CHÁVEZ, SHAHANAD
[2019-07-07 08:00] VITALS: BP 109/63; PULSE 91; RESP 26; TEMP 36.8; O2SAT 94; O2SAT 96
[2019-07-07 08:26] LABS: Phosphorous 2.3 mg/dl (2.5-4.5)
--- NOTE | 2019-07-07 08:45 | HMH.ACPN2 ---
Internal Medicine - PN: Subj *Date: 07/07/19 *Time: 08:45 Interval history: Patient is done well overnight. Has had a very vigorous appetite and documented weight gain of about 7 pounds after fluids and p.o. nutrition. Continues to have very odd affect. No respiratory distress, stable on oxygen. Remains afebrile and hemodynamically stable. As of this morning, her COVID-19 test came back negative (from [facility] lab). We will plan to transfer out of isolation unit. No nausea, vomiting, diarrhea, chest pain, worsening shortness of breath. Is asking for some strong pain meds due to discomfort after extended coughing Exam Vital signs and Labs for Last 24 Hours: Temp Pulse Resp BP Pulse Ox 98.2 F 91 H 26 H 109/63 L 96 07/07/19 08:00 07/07/19 08:00 07/07/19 08:00 07/07/19 08:00 07/07/19 08:00 Laboratory Results - last 24 hr 07/06/19 12:08: Specimen Source Left radial, O2 % 3l, ABG pH 7.32 L, ABG pCO2 89.0 H, ABG pO2 170.4 H, ABG HCO3 44.4 H, ABG Total CO2 47.1 H, ABG O2 Saturation 99, ABG Base Excess 18.3 H 07/06/19 12:19: WBC 7.2 D, RBC 4.27, Hgb 12.9, Hct 42.3, MCV 99.0, MCH 30.2, MCHC 30.5 L, RDW 13.3, Plt Count 248, MPV 8.0, Neut % (Auto) 88.6 H, Lymph % (Auto) 4.6 L, Yancey % (Auto) 5.8, Eos % (Auto) 1.0, Baso % (Auto) 0.1, Neut # (Auto) 6.4, Lymph # (Auto) 0.3 L, Yancey # (Auto) 0.4, Eos # (Auto) 0.1, Baso # (Auto) 0.0, Total Counted 100, Neutrophils % (Manual) 93 H, Lymphocytes % (Manual) 5 L, Monocytes % (Manual) 2, Platelet Estimate Normal, RBC Morphology Normal 07/06/19 12:19: Sodium 138, Potassium 4.2, Chloride 90 L, Carbon Dioxide 48 H* D, Anion Gap 4.2 L, BUN 16 D, Creatinine 0.30 L, Estimated Creat Clear 114, Estimated GFR 227, Est GFR ( Amer) 275, Glucose 89, Calcium 8.1 L, Total Bilirubin 0.4, AST 27 D, ALT 47 D, Alkaline Phosphatase 62, Troponin I < 0.01, Total Protein 5.8 L, Albumin 3.4 L, Globulin 2.4, Albumin/Globulin Ratio 1.4 07/06/19 13:35: Influenza Type A Ag Negative, Influenza Type B Ag Negative 07/06/19 13:35: Group A Strep Rapid Negative 07/07/19 05:13: WBC 7.8, RBC 3.60 L, Hgb 11.1 L D, Hct 36.1 L, MCV 100.3 H, MCH 30.6, MCHC 30.5 L, RDW 13.3, Plt Count 245, MPV 9.2, Neut % (Auto) 88.3 H, Lymph % (Auto) 4.9 L, Yancey % (Auto) 6.4, Eos % (Auto) 0.2, Baso % (Auto) 0.1, Neut # (Auto) 6.9, Lymph # (Auto) 0.4 L, Yancey # (Auto) 0.5, Eos # (Auto) 0.0, Baso # (Auto) 0.0 07/07/19 05:13: Sodium 136, Potassium 3.8, Chloride 95 L, Carbon Dioxide 39 H, Anion Gap 5.8, BUN 17, Creatinine 0.30 L, Estimated Creat Clear 109, Estimated GFR 227, Est GFR ( Amer) 275, Glucose 72 L, Calcium 7.6 L, Magnesium 2.1, Total Bilirubin 0.2, AST 23, ALT 30 D, Alkaline Phosphatase 63, Total Protein 5.2 L, Albumin 2.9 L D, Globulin 2.3, Albumin/Globulin Ratio 1.3 07/07/19 05:13: Phosphorus 2.3 L I & O for Last 24 hours: Intake & Output 07/04/19 07/05/19 07/06/19 07/07/19 23:59 23:59 23:59 23:59 Intake Total 240 / 240 2392 / 2392 Balance 240 / 240 2392 / 2392 Weight 32 kg 34.615 kg Narrative: Extremely thin, cachectic and frail white female with very unusual psychiatric affect. Oropharynx clear, no jaundice, no scleral icterus. Poor air movement, oropharynx dry but clear, no JVD. Abdomen soft, scaphoid, no organomegaly. No edema, significant muscle wasting of her extremities. Rate mildly tachycardic but no murmurs or gallops. Neurologic exam nonfocal. Assessment and Plan (1) Right lower lobe pneumonia Current visit: Yes Status: Acute Category: Medical Code(s): J18.9 - Pneumonia, unspecified organism PSI score of 80 for patient's age and pH less than 7.35 on admission. Class III risk with 0.9 to 2.8% mortality. Inpatient treatment recommended. We will continue to monitor improvement over the next 24 hours. If does well, will transition oral antibiotics, steroids, breathing treatments for home therapy. (2) Acute exacerbation of chronic obstructive airways disease Current visit:
[2019-07-07 08:47] LABS: Lymphocytes % 5 % (10-50); Monocytes % 7 % (2-9); Neutrophils % 88 % (42-76); Total Cells Counted 100
[2019-07-07 08:48] LABS: Platelet Estimate Normal; RBC Morphology Normal
[2019-07-07 09:06] LABS: Covid-19 Nasal PCR Sendout Lex NOT DETECTED
--- NOTE | 2019-07-07 09:20 | PC.NURSE ---
NOTIFIED DR. KENYON AND DR. DIAZ OF NEGATIVE COVID TEST RESULTS. NOTIFIED Antwan ROBLES RN OF NEGATIVE COVID TEST RESULTS SO PATIENT CAN BE MOVED OUT OF THE COVID UNIT. TEST RESULTS WILL BE FAXED TO REPLACED BY [facility].
--- NOTE | 2019-07-07 10:26 | SW/DCPLANNER ---
Addendum entered by Rebecca Cortez 07/07/19 14:38: Patients sister (Serena) was contacted and stated that she does not have a preference for a facility for this patient. I have also spoke with Alberta at [facility] and she does NOT have any beds available at this time. I will continue to follow up with [facility] and other facilities if necessary. Addendum entered by Rebecca Cortez 07/07/19 14:20: Patient is agreeable to placement at this time. Patient stated if I have to go I want to stay in [place] . I have explained to this patient that there are either no beds in [place] or facilities are not in network with her insurance. Patient then asked if I would contact her daughter regarding placement. Daughter stated that she did not have a preference but patient will need to go somewhere for rehab. Daughter stated that she does not have the best relationship with her mother and prefer her personal information not be gave to any facilities. Patient is agreeable to contact local and surrounding counties at this time. I have contacted [facility]: currently not accepting patients, [facility]: no beds available, [facility] in [place]: information has been faxed to [facility] and a voicemail has been left for Alberta at [facility]. I will continue to follow up with patient and facilities. I have also attempted to contact patients person to notify (Serena) with no answer but voicemail has been left. Discharge date is unknown at this time. Addendum entered by Rebecca Cortez 07/07/19 11:24: Ariana with [facility] has called me in regards to this patient. Ariana has stated that she has reviewed patient report that I made yesterday and due to COVID 19 pandemic Ariana has stated that APS will not be allowed to investigate. Ariana has stated that the ultimate goal would be placement for this patient but this can NOT be made mandatory. I did ask Ariana if we discharge the patient home and she continues to return to [facility] what should happen? Ariana again stated due to pandemic [facility]PS will not be investigating unless a life vs situation . Ariana stated that patient has a very similar report made in 2017 and patient was competent and could continue to make her own decisions for herself. I will continue to follow up with this patient. I will again have a in-depth conversation with patient this afternoon once PT re-evaluates and gives recommendation regarding placement. Original Note: I have spoke with this patient today regarding discharge plans once medically stable. Patient stated that she resides at a apartment in [place] and has 20 stairs to get inside. Patient stated that her daughter assist her with meals: but also stated that she has not spoke to her daughter in years. Patients nurse (Serena Robison and lIsa Motley) were present during my visit and patient did allow them to make a phone call to her daughter. Patient stated that she wants to return home and have home health. I did explain to patient that she will need to participate with PT (refused this AM per Toy) then they will give recommendations as to a safe discharge plan. I explained home with home health vs placement. I will follow up with this patient this afternoon once PT evaluates patient. I did make a [facility] report on this patient: the report was assigned to [employer].
--- NOTE | 2019-07-07 14:45 | PC.NURSE ---
Denies shortness of breath/pain. Remains incontinent without any attempt to let staff know. Passive behavior noted.
[2019-07-07 16:00] VITALS: BP 101/58; PULSE 100; RESP 16; TEMP 37.2; O2SAT 100
[2019-07-07 16:36] LABS: Chloride 95 mmol/L (98-107); Potassium 3.4 mmoL/L (3.5-5.1); Sodium 139 mmol/L (136-145)
[2019-07-07 16:39] LABS: Blood Urea Nitrogen 11 mg/dl (7-17); Calcium 7.1 mg/dl (8.4-10.2); Creatinine Clearance Estimated 109 mL/min (50-200); Estimated Glomerular Filt Rate 227 ml/min (>60); GFR (African American) 275 ML/MIN (>60); Glucose 86 mg/dl (74-100); Magnesium 1.9 mg/dl (1.6-2.3); Phosphorous 3.6 mg/dl (2.5-4.5)
[2019-07-07 16:52] LABS: Anion Gap 5.4 mEq/L (5-15); Carbon Dioxide 42 mmol/L (22.0-30.0)
--- NOTE | 2019-07-07 17:25 | HMH.BHCONS ---
*Admission Date: 07/06/19 *Reason for consult:: history of mental illlness *History of present illness: Patient admitted for COPD exacerbation. -she was interviewed at bedside -she is alone -she is unkempt She states that she is here because she let herself get so ran down that she was having trouble breathing. That she has been living on her own for the past 6 years. 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 She denies that she has any issues with anxiety or depression. -states that she has seen a psychiatrist once before -this was for her interview for disability -so she could get her check -hasn't seen one other than this time -denies that she has ever been on medications for her anxiety or depression -denies any SI/HI -denies any history of SI or self-harm tendencies -she does state that she doesn't see her kids; that they do not have a good relationship -she has nobody to help her around her home; nobody to take her to the store -she states that she has been sick for a couple weeks but nobody to help her get back on her feet -she admits she has lost a lot of weight -that her normal weight is around 96-98 pounds She was very quick to dismiss me. She stated that she did not need me and that she felt fine. She did say that she would like for someone to come in her home and help her around until she was strong enough to care for herself again. -she did not open up about anything in her past -about her relationship with her kids -she was closed off and flat ORIENTATION: -aware it is Saturday and it is 2019 -when asked the month; she replied; 5th -she knows she is at [facility] -asked the city: [facility]; I repeated the question; What city are we in? Her reply: [facility] -who is the president: she replied; the president of [place] -Given 3 objects to recall; on immediate recall 3/3 (ball, cat, rock) -after 1 minute; 2/3 (ball, cat, bat) -after 3 minutes: 1/3 (cat, bat) -she was able to name objects around the room without hesitation -when asked to repeat 'no ifs ands or buts'; she replies; 'no buts what?' I attempted to talk to her about medications; she states that she hasn't taken them before and does not wish to. RECOMMENDATIONS: 1. Refer to a nursing facility; at least assisted living. 2. NO medications at this time; she denies needing them; would not be compliant. TIME IN: 1700 TIME OUT: 1730 [facility] History Medical History: Reports:: Chronic Obstructive Pulmonary Disease (COPD), Home Oxygen Denies:: Cancer, Diabetes Mellitus Type 1, Diabetes Mellitus Type 2, MRSA *Have you ever received a pneumonia vaccine?: Yes *Have you received a flu vaccine this season?: Yes Other Surgeries: Yes: Amputation: No Fractures: No - *Social History Educational Level: Attended High School Smoking Status: Never smoker # Packs/Day (cigarettes): 1 #Yrs smoked (if former smoker): 30 Alcohol Intake: former Alcohol Intake Frequency:: holidays/special occasions only *Occupational Status:: retired *Travel in the last 8 weeks: None Family Hx:: No significant family history Review of Systems - *Neurologic Reports weakness, Denies headache(s), Denies numbness, Denies fainting Meds Home Medications Medication Instructions Recorded Confirmed Type Albuterol Sulfate [Albuterol 2.5 mg IH Q4HP PRN 05/01/18 07/06/19 History 0.083% 2.5mg/3mL neb] Albuterol Sulfate [Albuterol HFA 2 puff IH Q4HP PRN 07/06/19 07/06/19 History Inhaler] Allergies Allergy/AdvReac Type Severity Reaction Status Date / Time No Known Allergies Allergy Verified 07/03/19 15:44 Exam Vital signs and Labs for Last 24 Hours: Temp Pulse Resp BP Pulse Ox 99.0 F 100 H 16 101/58 L 100 07/07/19 16:00 07/07/19 16:00 07/07/19 16:00 07/07/19 16:00 07/07/19 16:00 Laboratory Results - la
[2019-07-07 18:10] VITALS: PULSE 100; PULSE 102
[2019-07-07 20:00] VITALS: BP 100/59; PULSE 73; RESP 16; TEMP 37.1; O2SAT 99
[2019-07-07 22:31] LABS: Microscopic, Urine URINE MICROSCOPIC (MICROSCOPIC)
[2019-07-07 22:34] LABS: Appearance,Urine CLEAR (Clear); Bilirubin,Urine Negative (Negative); Blood, Urine Negative (Negative); Color,Urine YELLOW (Yellow); Glucose,Urine (UA) TRACE (Negative); Ketones,Urine Negative (Negative); Leukocyte Esterase,Urine Negative (Negative); Nitrate,Urine Negative (Negative); Protein,Urine Negative (Negative); Specific Gravity, Urine >= 1.030 (1.005-1.030); Urobilinogen,Urine 0.2 EU/dl (0.2); WBC,Urine Occasional #/hpf (0-3)
[2019-07-07 22:35] LABS: Bacteria,Urine Trace /lpf
[2019-07-08 04:00] VITALS: BP 101/61; PULSE 96; RESP 19; TEMP 36.9; O2SAT 98
[2019-07-08 05:35] VITALS: BMI 17.2
--- NOTE | 2019-07-08 05:42 | PC.NURSE ---
A&OX4. PT TOLERATING 2LNC THIS SHIFT. PT HAS HAD NO COMPLAINTS THUS FAR THIS SHIFT. PT ONLY MOANS, DISPLAYING PASSIVE BEHAVIOR. PT REMAINS INCONTINENT, BRIEF AND PURWICK IN PLACE. THIS NURSE ASKED PT IF SHE WAS ABLE TO STAND UP TO WALK AND SIT ON THE TOILET TO USE THE BATHROOM, PT REPLIED, YES, I JUST DON'T FEEL LIKE IT RIGHT NOW, NOW LEAVE ME ALONE, I JUST WANT TO LAY HERE AND REST. PT HAS SLEPT THE MAJORITY OF THIS SHIFT. PT TOLERATES SNACK. VSS WILL CONTINUE TO MONITOR.
[2019-07-08 06:48] LABS: Chloride 94 mmol/L (98-107); Sodium 138 mmol/L (136-145)
[2019-07-08 06:49] LABS: Potassium 3.3 mmoL/L (3.5-5.1)
[2019-07-08 07:05] LABS: Blood Urea Nitrogen 6 mg/dl (7-17); Creatinine Clearance Estimated 196 mL/min (50-200); Estimated Glomerular Filt Rate 362 ml/min (>60); GFR (African American) 438 ML/MIN (>60); Glucose 83 mg/dl (74-100); Phosphorous 3.2 mg/dl (2.5-4.5)
[2019-07-08 07:07] LABS: Anion Gap 4.3 mEq/L (5-15)
[2019-07-08 07:16] LABS: Carbon Dioxide 43 mmol/L (22.0-30.0)
[2019-07-08 07:19] LABS: Calcium 6.9 mg/dl (8.4-10.2)
[2019-07-08 08:00] VITALS: BP 108/56; PULSE 94; RESP 18; TEMP 36.9; O2SAT 100; O2SAT 2
--- NOTE | 2019-07-08 08:05 | PC.NURSE ---
Made Dr. Luz Elena MD aware of pts critical lab values co2 43 and calcium 6.9 at 0735. NNO at this time given,
--- NOTE | 2019-07-08 08:40 | HMH.ACPN2 ---
Internal Medicine - PN: Subj *Date: 07/08/19 *Time: 08:40 Interval history: Patient is pleasant, eating a rice crispy square vigorously. Had a good breakfast. Complains of some minimal shortness of air but is better. Understands she is going to be transferred to long-term care. Exam Vital signs and Labs for Last 24 Hours: Temp Pulse Resp BP Pulse Ox 98.4 F 94 H 18 108/56 L 100 07/08/19 08:00 07/08/19 08:00 07/08/19 08:00 07/08/19 08:00 07/08/19 08:00 Laboratory Results - last 24 hr 07/06/19 14:15: COVID-19 (CHARO) Not detected 07/06/19 22:10: Urine Color Yellow, Urine Appearance Clear, Urine pH 6.0, Ur Specific Bradley >= 1.030, Urine Protein Negative, Urine Glucose (UA) Trace, Urine Ketones Negative, Urine Blood Negative, Urine Nitrate Negative, Urine Bilirubin Negative, Urine Urobilinogen 0.2, Ur Leukocyte Esterase Negative, Urine WBC Occasional, Ur Squamous Epith Cells 3-5, Urine Bacteria Trace 07/07/19 05:13: Total Counted 100, Neutrophils % (Manual) 88 H, Lymphocytes % (Manual) 5 L, Monocytes % (Manual) 7, Platelet Estimate Normal, RBC Morphology Normal 07/07/19 16:11: Sodium 139, Potassium 3.4 L, Chloride 95 L, Carbon Dioxide 42 H*, Anion Gap 5.4, BUN 11 D, Creatinine 0.30 L, Estimated Creat Clear 109, Estimated GFR 227, Est GFR ( Amer) 275, Glucose 86, Calcium 7.1 L, Phosphorus 3.6 D, Magnesium 1.9 07/08/19 06:15: Sodium 138, Potassium 3.3 L, Chloride 94 L, Carbon Dioxide 43 H*, Anion Gap 4.3 L, BUN 6 L D, Creatinine 0.20 L D, Estimated Creat Clear 196, Estimated GFR 362, Est GFR ( Amer) 438 D, Glucose 83, Calcium 6.9 L, Phosphorus 3.2 I & O for Last 24 hours: Intake & Output 07/05/19 07/06/19 07/07/19 07/08/19 11:59 11:59 11:59 11:59 Intake Total 2632 / 2632 2983 / 2983 Output Total 300 / 300 Balance 2631 / 2631 2683 / 2683 Weight 76 lb 5 oz 91 lb 5 oz Narrative: Patient is pleasant, talkative, continues to make vocalizations with humming during expiration which is an unusual affect but somewhat compromises the accuracy of her lung exam. Heart rate regular. Abdomen scaphoid. Muscle mass wasted. No rash. Neurologic exam intact. Oropharynx dry but clear. Assessment and Plan (1) Right lower lobe pneumonia Current visit: Yes Status: Acute Category: Medical Code(s): J18.9 - Pneumonia, unspecified organism (2) Acute exacerbation of chronic obstructive airways disease Current visit: Yes Status: Acute Category: Medical Code(s): J44.1 - Chronic obstructive pulmonary disease with (acute) exacerbation (3) Chronic respiratory failure with hypoxia Current visit: Yes Status: Acute Category: Medical Code(s): J96.11 - Chronic respiratory failure with hypoxia (4) Failure to thrive Current visit: Yes Status: Acute Qualifiers: Failure to thrive age range: in adult Qualified Code(s): R62.7 - Adult failure to thrive Category: Medical (5) Malnutrition Current visit: Yes Status: Acute Qualifiers: Malnutrition type: protein-calorie malnutrition Protein-calorie malnutrition severity: moderate Qualified Code(s): E44.0 - Moderate protein-calorie malnutrition Category: Medical Code(s): E46 - Unspecified protein-calorie malnutrition (6) Shortness of breath Current visit: No Status: Acute Category: Medical Code(s): R06.02 - Shortness of breath (7) Cachexia Current visit: Yes Status: Acute Category: Medical Code(s): R64 - Cachexia (8) Acute and chronic respiratory failure with hypercapnia Current visit: Yes Status: Acute Category: Medical Code(s): J96.22 - Acute and chronic respiratory failure with hypercapnia (9) Hypocalcemia Current visit: Yes Status: Acute Category: Medical Code(s): E83.51 - Hypocalcemia - Assessment and plan all Dx Assessment and Plan for all problems:: Overall improving. Will need long-term care placement. Patient is agreeable. Replace calcium today.
[2019-07-08 08:51] VITALS: BMI 15.5
--- NOTE | 2019-07-08 09:26 | SW/DCPLANNER ---
Addendum entered by Rebecca Stella 07/08/19 13:58: I have also informed Ariana with [facility]. Addendum entered by Rebecca Stella 07/08/19 13:31: This patient has been accepted to [facility] in [place] pending precert from [facility]. I will inform MD, patient and patients family. Dr Laguna has stated he anticipates discharge tomorrow. Addendum entered by Rebecca Stella 07/08/19 10:30: [facility] would be 100% private pay for this patient due to being out of network with her insurance. Patient information has also been faxed to Mira at [facility]. At this time I am waiting for [facility] and [facility] to review patient information and for Ángel Dominguez to return my phone call. I did attempt to speak with this patient this morning regarding refusal of physical therapy today.....patient continuously stated just get me my nebulizer . I attempted to explain that her insurance will not cover a SNF level of care if she continue to not work with physical therapy. I will continue to follow up with facilities and patient. Original Note: I am continuing to seek SNF placement for this patient. As of today patient information has been faxed to: [facility] and [facility]. Also as of today there are several facilities with no beds: [facility], [facility], [facility], [facility] (refused), [facility] (no admissions allowed at this time) and [facility]. I have also left a voicemail with [facility] regarding bed availability. I will continue to follow up with facilities and patient today.
--- NOTE | 2019-07-08 14:14 | DIET.NUTRFU ---
Nutritional assessment completed, pt is severely malnourished dt environmental/social circumstances in addition to increased energy expenditure from COPD. She is at risk for refeeding syndrome but without symptoms att other than slightly low K this am and rapid weight gain of 11# past 4 days. Will continue to monitor closely. Diet education for malnutrition given and pt encouraged to take low and slow approach to gradually increasing intakes. She is very weak and confused, I did include written education materials and encouraged pt to contact me post dc for further counseling.
[2019-07-08 16:00] VITALS: BP 105/54; PULSE 96; RESP 17; TEMP 37.3; O2SAT 97
--- NOTE | 2019-07-08 19:14 | PC.NURSE ---
report given to faye
[2019-07-08 19:32] VITALS: O2SAT 87
[2019-07-08 20:00] VITALS: BP 113/61; PULSE 93; RESP 16; TEMP 36.8; O2SAT 100
--- NOTE | 2019-07-08 20:06 | PC.NURSE ---
Pt alert and oriented and able to make needs known. RR even and unlabored. Pt has requested nebs often this shift and they have been given prn per mar. Pt rested well this shift and has been up to chair. 02 continues at 2 L. Lungs cta anand, diminished in bases. BS x 4. NS @ 150 ml/hr continues.
--- NOTE | 2019-07-08 21:33 | PC.NURSE ---
A&OX4. PT SITTING UP IN BED AWAKE AT THIS TIME, MUCH MORE WILLING TO TALK AND ANSWER QUESTIONS, THOUGH VOICE IS STILL VERY QUIET AND SLURRED. PT STATED SHE WOULD USE CALL LIGHT TO LET STAFF KNOW WHEN SHE HAD TO USE THE REST ROOM, SO SHE COULD WALK TO THE COMMODE. PT TOLERATING 2LNC AT THIS TIME, NO C/O PAIN OR SOA. VSS, CALL PATEL IN REACH, WILL CONTINUE TO MONITOR.
--- NOTE | 2019-07-09 02:20 | PC.NURSE ---
PT BRIEF WAS SATURATED IN URINE, PT STATES I WAS JUST TIRED. THIS NURSE AND JUDY CHANGED PT, CLEAN BRIEF APPLIED. NEW IV INSERTED TO LAC. INFILTRATION NOTED TO R ARM. NO COMPLAINTS FROM PT. WILL CONTINUE TO MONITOR.
[2019-07-09 04:00] VITALS: BP 102/61; PULSE 79; RESP 16; TEMP 36.8; O2SAT 94
--- NOTE | 2019-07-09 04:31 | PC.NURSE ---
PT HAS CONTINUED TO SLEEP T/O SHIFT WITH NO COMPLAINTS. PT CONTINUES TO BE INCONTINENT TO BLADDER. CHANGED NEEDED. NO C/O SOA T/O SHIFT. VSS WILL CONTINUE TO MONITOR.
[2019-07-09 05:10] VITALS: BMI 16.4
--- NOTE | 2019-07-09 05:47 | PC.NURSE ---
THIS NURSE AND Lupe FLEMING ZEROED BED TO BE SURE TO GET ACCURATE PT WEIGHT. PT WEIGHT 07/07 37.251KG. PT WEIGHT 07/08 39.463KG. PT AMBULATED FROM BED TO CHAIR INDEPENDENTLY. THIS TOOK A LOT OF ENCOURAGEMENT FROM STAFF BUT PT WAS ABLE TO AMBULATE ON HER OWN. PT RESTING IN CHAIR AT THIS TIME. NO COMPLAINTS, CALL PATEL IN REACH. VSS WILL CONTINUE TO MONITOR.
[2019-07-09 06:40] VITALS: O2SAT 95
--- NOTE | 2019-07-09 07:53 | CT_ITS ---
PROCEDURE: CT HEAD/BRAIN WO/W CON CLINICAL INDICATION: confusion, AMS Confusion, altered mental status, altered level consciousness, disorientation COMPARISON: No exams were available for comparison TECHNIQUE: IV Contrast: 100ML OPITRAY 320 Axial images obtained. All CT scans at the facility use one or more dose reduction, viz: automated exposure control, ma/kV adjustment per patient size (including targeted exams where dose is matched to indication, i.e. head), or iterative reconstruction technique. FINDINGS: No midline shift, mass effect, intracranial hemorrhage, hydrocephalus, or extra-axial fluid collection is evident. No enhancing lesions are evident. The calvarium has an unremarkable appearance. Mastoids no mastoid effusion no sinus air-fluid level IMPRESSION: No acute intracranial findings. Dictated by: Checo Ruiz MD 07/09/2019 09:55 Electronically signed by Checo Ruiz MD in [place] 07/09/2019 09:55
[2019-07-09 08:00] VITALS: BP 95/52; PULSE 98; RESP 16; TEMP 36.5; O2SAT 98
[2019-07-09 08:08] LABS: Chloride 93 mmol/L (98-107); Sodium 139 mmol/L (136-145)
--- NOTE | 2019-07-09 08:09 | P.PN_ITS ---
Internal Medicine - PN: Subj *Date: 07/09/19 *Time: 08:09 Exam Vital signs and Labs for Last 24 Hours: Temp Pulse Resp BP Pulse Ox 98.2 F 79 16 102/61 L 95 07/09/19 04:00 07/09/19 04:00 07/09/19 04:00 07/09/19 04:00 07/09/19 06:40 I & O for Last 24 hours: Intake & Output 07/06/19 07/07/19 07/08/19 07/09/19 23:59 23:59 23:59 23:59 Intake Total 240 / 240 3498 / 3498 3837 / 3837 1703 / 1703 Output Total 300 / 300 Balance 240 / 240 3498 / 3498 3537 / 3537 1703 / 1703 Weight 32 kg 34.615 kg 37.251 kg 39.463 kg Assessment and Plan (1) Right lower lobe pneumonia Current visit: Yes Status: Acute Category: Medical Code(s): J18.9 - Pneumonia, unspecified organism (2) Acute exacerbation of chronic obstructive airways disease Current visit: Yes Status: Acute Category: Medical Code(s): J44.1 - Chronic obstructive pulmonary disease with (acute) exacerbation (3) Chronic respiratory failure with hypoxia Current visit: Yes Status: Acute Category: Medical Code(s): J96.11 - Chronic respiratory failure with hypoxia (4) Failure to thrive Current visit: Yes Status: Acute Qualifiers: Failure to thrive age range: in adult Qualified Code(s): R62.7 - Adult failure to thrive Category: Medical (5) Malnutrition Current visit: Yes Status: Acute Qualifiers: Malnutrition type: protein-calorie malnutrition Protein-calorie malnutrition severity: moderate Qualified Code(s): E44.0 - Moderate protein- calorie malnutrition Category: Medical Code(s): E46 - Unspecified protein-calorie malnutrition (6) Shortness of breath Current visit: No Status: Acute Category: Medical Code(s): R06.02 - Shortness of breath (7) Cachexia Current visit: Yes Status: Acute Category: Medical Code(s): R64 - Cachexia (8) Acute and chronic respiratory failure with hypercapnia Current visit: Yes Status: Acute Category: Medical Code(s): J96.22 - Acute and chronic respiratory failure with hypercapnia (9) Hypocalcemia Current visit: Yes Status: Acute Category: Medical Code(s): E83.51 - Hypocalcemia
[2019-07-09 08:11] LABS: Blood Urea Nitrogen 3 mg/dl (7-17); Creatinine Clearance Estimated 186 mL/min (50-200); Estimated Glomerular Filt Rate 362 ml/min (>60); GFR (African American) 438 ML/MIN (>60); Glucose 83 mg/dl (74-100)
[2019-07-09 08:12] LABS: Phosphorous 2.9 mg/dl (2.5-4.5)
[2019-07-09 08:24] LABS: Anion Gap 0.9 mEq/L (5-15)
[2019-07-09 08:25] LABS: Calcium 6.8 mg/dl (8.4-10.2); Carbon Dioxide 48 mmol/L (22.0-30.0); Potassium 2.9 mmoL/L (3.5-5.1)
--- NOTE | 2019-07-09 09:25 | SW/DCPLANNER ---
This [facility] has been [facility] to [facility] and I have spoke with [facility] in Admission and she has stated they have received approval from patients insurance. [facility]ira has stated they can accept this patient today. I have informed MD and patients nurse (Catarina).
--- NOTE | 2019-07-09 09:57 | HMH.DCSUM ---
General - General Admission date:: 07/06/19 Discharge date: 07/09/19 HPI HPI: In summary this is a 58-year-old female presenting to the emergency department shortness of breath. Patient is wheezing on arrival to the emergency department, using accessory muscles. She is tachycardic to 102. Oxygen saturations are appropriate with 2 L by nasal cannula. Differential diagnoses include COPD exacerbation, pneumonia, bronchitis, medication noncompliance, failure to thrive, urinary tract infection. Plan to obtain CBC, CMP, ABG, chest x-ray, EKG, troponin profile and reassess. Patient to use her albuterol MDI. Given 125 mg of IV Solu-Medrol, 1 g of Rocephin. Laboratory results show acidosis with pH of 7.3, CO2 significantly elevated at 89. Chest x-ray shows emphysematous changes but also slight bilateral lower lobe opacities. I have concern for COVID 19, will obtain test. She will require hospitalization for acute hypoxic respiratory failure and COPD exacerbation. Also failure to thrive. Social work and Adult Protective Services contacted. Patient was allowed to eat in the emergency department. Hospital medicine, Dr. Laguna consulted and he graciously accepted the admission. Above note per emergency department. Essentially patient is a 58-year-old white female with severe protein calorie malnutrition, lives by herself and [place], [place] and has not been eating well over the past several weeks. Several visits to the ER, 1 prescription for antibiotics, has failed to improve. Came back to the hospital, acute on chronic respiratory failure, admitted to isolation for coronavirus 19 rule out and IV antibiotics and nutritional support. Hospital Course Hospital Course: Ms. Eric was admitted for worsening respiratory status in the setting of previous treatment for COPD exacerbation. Initially treated with antibiotics and steroids, no significant change in her respiratory symptoms. Upon review of imaging, found to have quite prominent hyperinflation and severe COPD. Increased breathing treatments during admission and assessed for nutritional deficiencies given her cachexia and weakness. Physical therapy has been working with her though exercise worsens her shortness of breath which is limited participation, though she has tried on a regular basis. Nutrition has been assisting with care given her malnourishment and cachexia. Supplements initiated and recommend further nutritional assessment once to a long-term for further care and therapy. Has required calcium repletion, potassium repletion, and phosphorus repletion during admission. Was also noted that patient is pleasant but has a very bizarre affect. Behavioral health was consulted during admission and tried to work with patient however patient had no interest in opening up to behavioral health nurse. No medications or treatments started during hospitalization. 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 Will need prolonged therapy to assist in trying to get her back home in an independent setting however I have strong concern that she may require long-term skilled care because of her debility. We will continue steroids in the outpatient setting. Continue aggressive inhalers/nebs. Stable for discharge to long-term for further physical therapy and management. Objective Vital signs: Temp Pulse Resp BP Pulse Ox 97.7 F 98 H 16 95/52 L 98 07/09/19 08:00 07/09/19 08:00 07/09/19 08:00 07/09/19 08:00 07/09/19 08:00 Narrative: Extremely thin, cachectic and frail white female with very unusual psychiatric affect. Oropharynx clear, no jaundice, no scleral icterus. Poor air movement, oropharynx dry but clear, no JVD. Abdomen soft, scaphoid, no organomegaly. No edema, significant muscle wasting of her extremities. Rate mildly tachycardic but no murmurs or gallops. Neur
--- NOTE | 2019-07-09 12:30 | PC.NURSE ---
report given to Jennifer GALLAGHER at [facility].
== END 2019-07-09 15:08 | DRG 189 ==
LOC: ER 13:51 → ICU 07-07 06:44 → 2ND 07-07 08:52 → ICU 07-07 11:18
PROVIDERS: Internal Medicine Adolescent Medicine; Admitting Provider Internal Medicine Adolescent Medicine; Emergency Provider Emergency Medicine; Visit Provider Internal Medicine Adolescent Medicine
DX: J96.22 Acute and chronic respiratory failure with hypercapnia (principal); E43 Unspecified severe protein-calorie malnutrition; J44.1 Chronic obstructive pulmonary disease with (acute) exacerbation; Z68.1 Body mass index [BMI] 19.9 or less, adult; R64 Cachexia; J96.11 Chronic respiratory failure with hypoxia; R62.7 Adult failure to thrive; Z99.81 Dependence on supplemental oxygen; E83.51 Hypocalcemia; Z79.51 Long term (current) use of inhaled steroids
CPT/HCPCS: 36415; 70470; 71045; 80048; 80053; 81001; 82803; 83605; 83735; 84100; 84484; 85007; 85025; 87040; 87275; 87276; 87430; 93005; 94640; 94760; 94761; 96365; 96367; 96375; 97162; 97530; 99284; Q9967

== ENCOUNTER 2019-07-16 13:38 | Emergency (ER) | payer MEDICARE, SELFPAY ==
[2019-07-16 13:25] VITALS: BP 120/55; PULSE 118; RESP 25; TEMP 37.3; O2SAT 100; BMI 18.3
--- NOTE | 2019-07-16 13:31 | HMH.EDGENADL ---
ED Disposition Clinical Impression: Cystitis COPD (chronic obstructive pulmonary disease) Qualifiers: COPD type: unspecified COPD Qualified Code(s): J44.9 - Chronic obstructive pulmonary disease, unspecified Chronic respiratory failure Qualifiers: Respiratory failure complication: hypoxia and hypercapnia Qualified Code(s): J96.11 - Chronic respiratory failure with hypoxia; J96.12 - Chronic respiratory failure with hypercapnia Disposition: Home, Self-Care Condition on Discharge: Fair Instructions: DI for Emphysema, DI for Chronic Obstructive Pulmonary Disease, DI for Shortness of Breath, DI for Muscle Weakness, DI for Urinary Tract Infection (UTI) Additional Instructions: Follow-up with your primary care provider, call tomorrow to make appointment. Additional instructions for URINARY TRACT INFECTION: See your physician in 2-3 days for follow up and culture results. Return immediately if you have an uncontrollable fever greater than 102 degrees, severe back or abdominal pain, inability to urinate, or repetitive vomiting. Prescriptions: cephALEXin [Keflex 500mg Cap] 500 mg PO TID #21 cap Transmission Status: Pending to [facility] Referrals: Provider,Referral, [Referring] - - Critical Care Critical Care Time: No Attestation: On , the high probability of a clinically significant, sudden or life threatening deterioration of the following system(s) required my full and direct attention, intervention and personal management. The time I documented below is in addition to time spent performing reported procedures but includes the following listed in this critical care notation. Medical Decision Making - Medical Records Medical records reviewed: Yes: I reviewed the patient's medical records. - Alo Inquiry Pt receiving controlled substance: No Vital Signs: 07/16/19 13:25 07/16/19 14:11 07/16/19 14:30 Temperature 99.1 F Temperature Source Rectal Pulse Rate [Right] 118 H Respiratory Rate 25 H Blood Pressure [Right Arm] 120/55 L 93/60 L Blood Pressure Mean [Right Arm] 76 71 Blood Pressure Source [Right Arm] Automatic Cuff Blood Pressure Position [Right Arm] Sitting 02 Sat by Pulse Oximetry 100 100 87 L Oxygen Delivery Method Nasal Cannula Room Air Oxygen Flow Rate (LPM) 3 - Lab Data Lab results reviewed: Yes: I reviewed the patient's lab results. Lab Results 07/16/19 13:45: WBC 7.7, RBC 3.86 L, Hgb 12.0 L, Hct 40.4, MCV 104.8 H, MCH 31.0, MCHC 29.6 L, RDW 13.6, Plt Count 157, MPV 8.6, Neut % (Auto) 91.2 H, Lymph % (Auto) 4.7 L, [place] % (Auto) 2.7, Eos % (Auto) 0.4, Baso % (Auto) 1.0, Neut # (Auto) 7.1, Lymph # (Auto) 0.4 L, [place] # (Auto) 0.2, Eos # (Auto) 0.0, Baso # (Auto) 0.1, Total Counted 100, Neutrophils % (Manual) 91 H, Lymphocytes % (Manual) 6 L, Monocytes % (Manual) 2, Basophils % (Manual) 1.0, Platelet Estimate Moderate decrease, Hypochromasia 1+, Anisocytosis 1+, Macrocytosis 1+ 07/16/19 13:45: Sodium 136, Potassium 5.0, Chloride 91 L, Carbon Dioxide 45 H*, Anion Gap 5.0, BUN 16, Creatinine 0.30 L, Estimated Creat Clear 143, Estimated GFR 227, Est GFR ( Amer) 275, Glucose 105 H, Calcium 8.6, Total Bilirubin 0.1 L, AST 41 H, ALT 42, Alkaline Phosphatase 70, Troponin I < 0.01, Total Protein 6.2 L, Albumin 3.7, Globulin 2.5, Albumin/Globulin Ratio 1.5 07/16/19 13:45: Lactate 1.2 07/16/19 13:45: NT-Pro-B Natriuret Pep 438 H 07/16/19 14:11: Specimen Source Right brachial, O2 % 2lpm nc, ABG pH 7.33 L, ABG pCO2 86.4 H, ABG pO2 153.3 H, ABG HCO3 44.2 H, ABG Total CO2 46.9 H, ABG O2 Saturation 99, ABG Base Excess 18.2 H, [place] Test Non applicable 07/16/19 14:45: Urine Color Yellow, Urine Appearance Sl cloudy, Urine pH 8.0, Ur Specific [place] 1.015, Urine Protein Negative, Urine Glucose (UA) Negative, Urine Ketones Negative, Urine Blood Negative, Urine Nitrate Positive, Urine Bilirubin Negative, Urine Urobilinogen 0.2, Ur Leukocyte Esterase 2+ A, Urine WBC 5-10, Ur Squamous Epith Ce
--- NOTE | 2019-07-16 13:35 | XR_ITS ---
PROCEDURE: XR CHEST PORTABLE CLINICAL HISTORY: SOA Shortness of air COMPARISON: CXR2V XR chest 2V from 05/01/2018 XR CHEST PORTABLE from 07/03/2019 XR CHEST PORTABLE from 07/06/2019 FINDINGS: The cardiomediastinal silhouette and pulmonary vascularity are within normal limits. COPD with chronic changes with scarring. There are small bilateral pleural effusions which have developed since the previous exam. No lobar consolidation or collapse. No acute bony abnormalities. IMPRESSION: COPD with small bilateral pleural effusions Dictated by: Checo Ruiz MD 07/16/2019 14:29 Electronically signed by Checo Ruiz MD in [facility] 07/16/2019 14:29
--- NOTE | 2019-07-16 13:44 | ECG_ITS ---
APPROVED REPORT Exam: Resting ECG HR:113 bpm ECG Measurements Heart Rate 113 AXES TX 116 P 91 QRSd 64 QRS 95 QT 314 T 63 QTc 430 <Conclusion> Sinus tachycardia Right atrial enlargement Rightward axis Pulmonary disease pattern NSSTTW changes.. unchanged from prior Abnormal ECG Electronically signed by : Dilshad Laguna, 07/19/2019 13:17:11
--- NOTE | 2019-07-16 13:45 | PC.NURSE ---
PT BEGAN TO BECOME RUDE AND IRATE WITH STAFF, STATED TO PT THAT WE ARE JUST TRYING TO CARE FOR HER AND SHE STARTED YELLING AND CURSING AT STAFF. ASKED PT WHAT I COULD DO FOR HER TO MAKE HER HAPPY AND SHE STATED FOR ME TO BE QUIET AND STOP ASKING HER QUESTIONS.
--- NOTE | 2019-07-16 14:01 | PC.NURSE ---
RT and Rad at bedside Rebecca Cortez from case management just called to let us know that pt has apparently called 911 herself to get transport here. Per Mel Christensen she has been discharged from their facility and would not comply with anything they needed her to do while there (admission forms, care) Rebecca states that pt does not qualify for [facility] to take her home. Also, her daughter was unhelpful during last admission and would not come to get her. Rebecca said that pt does have a sister that she can call about possibly helping her with travel arrangements if she is discharged.
--- NOTE | 2019-07-16 14:04 | PC.NURSE ---
PT VERY NASTY AND SAID SHE WANTED TO COME TO HER HOMETOWN , SHE WAS NOT GOING BACK TO [facility] AND WE CANT MAKE HER , SHE REFUSES TO SIGN ANY CONSENT PAPERS SHE SAYS SHE WANTS TO GO HOME. SHE REFUSES TO GIVE US A URINE SAMPLE. DR ARMAS BACK IN THERE WITH HER
[2019-07-16 14:06] LABS: Alanine Aminotransferase 42 U/L (12-78); Albumin Level 3.7 g/dl (3.5-5.0); Albumin/Globulin Ratio 1.5 (1.1-1.8); Alkaline Phosphatase 70 U/L (38-126); Aspartate Amino Transferase 41 U/L (14-36); Blood Urea Nitrogen 16 mg/dl (7-17); Calcium 8.6 mg/dl (8.4-10.2); Chloride 91 mmol/L (98-107); Creatinine Clearance Estimated 143 mL/min (50-200); Estimated Glomerular Filt Rate 227 ml/min (>60); GFR (African American) 275 ML/MIN (>60); Globulin 2.5 g/dL (1.3-3.2); Glucose 105 mg/dl (74-100); Sodium 136 mmol/L (136-145); Total Protein,Serum 6.2 g/dl (6.3-8.2)
[2019-07-16 14:07] LABS: Lactic Acid 1.2 mmol/L (0.7-2.1)
[2019-07-16 14:08] LABS: Basophils # 0.1 K/mm3 (0-0.2); Eosinophils % 0.4 % (0.1-12.0); Hematocrit 40.4 % (37.0-47.0); Lymphocytes # 0.4 K/mm3 (0.7-4.5); Lymphocytes % 4.7 % (10-50); MANUAL DIFFERENTIAL MANUAL DIFFERENTIAL (MANUAL DIFF); Mean Corpuscular HGB Conc 29.6 g/dL (31.8-35.4); Mean Corpuscular Volume 104.8 fl (81-99); Mean Platelet Volume 8.6 fl (7.4-10.4); Monocytes # 0.2 K/mm3 (0.1-1.0); Monocytes % 2.7 % (1.7-9.3); Neutrophils # 7.1 K/mm3 (1.8-7.8); Neutrophils % 91.2 % (37.0-80.0); Platelet Count 157 K/mm3 (142-424); Red Blood Count 3.86 M/mm3 (4.20-5.40); Red Cell Distribution Width 13.6 % (11.5-17.5); White Blood Count 7.7 K/mm3 (4.8-10.8)
[2019-07-16 14:11] VITALS: BP 93/60; O2SAT 100
[2019-07-16 14:13] LABS: ABG Base Excess 18.2 mmol/L (-2.4-2.3); ABG HCO3 44.2 mmhg (22.0-26.0); ABG Oxygen Saturation 99 % (90-100); ABG PH 7.33 mmol/L (7.35-7.45); ABG PO2 153.3 mmhg (80-100); ABG TCO2 46.9 mmhg (23-27)
[2019-07-16 14:15] LABS: Allen's Test Non Applicable; Oxygen 2LPM NC %; Source Right Brachial
[2019-07-16 14:16] LABS: Bilirubin,Total 0.1 mg/dl (0.2-1.3); Carbon Dioxide 45 mmol/L (22.0-30.0)
[2019-07-16 14:18] LABS: ABG PCO2 86.4 mmhg (35.0-45.0)
--- NOTE | 2019-07-16 14:20 | SW/DCPLANNER ---
Addendum entered by [facility] 07/17/19 09:40: [facility] has stated they do have this patient under their home O2 services. Patients home O2 was last services in February of 2019. Patient also received a portable O2 tank from [facility] this month as well. I will follow up with [facility]. Addendum entered by [facility] 07/16/19 16:19: Ariana has also investigated with family and Mel Christensen and has stated that patient is competent and can return home. [facility] here shortly to transport this patient home. I have notified ED staff (CC) regarding situation. [facility] has delivered portable O2 tank for this patient. Addendum entered by [facility] 07/16/19 16:12: Patient is established with home oxygen from [facility] ([phone]). I will call tomorrow to have them check on patients home O2. I am currently on hold with [employer] regarding a ride home. Ariana with [facility] has reported that patients family does not have much involvement. Ariana stated that she and/or [place] [employer] will follow up with patient tomorrow. [facility] has stated that they can transport this patient for $25. Patient is agreeable. Addendum entered by [facility] 07/16/19 15:41: Ariana from [facility] has also stated that she will follow up with Police Dept tomorrow regarding welfare check on this patient. Addendum entered by [facility] 07/16/19 15:07: Patient has stated that she does NOT want to be admitted to [facility] at this time. Patient stated that she can afford to pay for transportation (estimated $60) and patient repeatedly stated that she can afford that for transportation. I have also called [facility] and spoke with Shani. Shani has stated that they will deliver a portable O2 tank to ED for patient transportation to home. Patient is NOT an existing O2 patient with [facility] but Evelyn Holly from [facility] has stated that they will deliver a portable take to ED if they receive an order from ED MD. Evelyn Holly has also stated that they will collect portables (previous admission) tomorrow and follow up with patients home O2 company. Patient is not established with [facility], [facility] nor [facility]. Once portable O2 tank is delivered to [facility] ED I will then call [facility] for patient to have a ride home. Original Note: I did receive a call from Mira at [facility] regarding this patient. Mira has stated that patient was admitted to [facility] from [facility] on 07/09/2019. Patient refused to sign any admission paperwork while at [facility] and was noncompliant: refusing therapies. Mira did inform me that patient was on her way to [facility] because she (patient) has called for an ambulance to bring her. Patient has arrived to ED and is again being noncompliant and rather irate with nursing staff. I have made another APS referral to [facility] Int[facility] (report was made during previous admission). ID # [id number]. I have spoke with Ariana from Adult Protective Services and she has stated that if patient chooses to make these decisions then patient can be discharged home once medically stable. I did explain to Ariana that staff felt as if patient was not safe to be at home and Ariana again stated that due to COVID 19 APS team can not investigate but patient could discharge home. Ariana is going to contact patients sister regarding transportation once medically stable for discharge. I will speak with ED MD, ED staff and patient regarding situation.
[2019-07-16 14:22] LABS: Anisocytosis 1+; Hypochromasia 1+; Lymphocytes % 6 % (10-50); Macrocytosis 1+; Monocytes % 2 % (2-9); Neutrophils % 91 % (42-76); Total Cells Counted 100; Troponin I < 0.01 ng/ml (0.00-0.034)
[2019-07-16 14:23] LABS: Platelet Estimate Moderate Decrease
--- NOTE | 2019-07-16 14:25 | PC.NURSE ---
CALLED DIETARY FOR MEAL REQUESTED BY PT
[2019-07-16 14:30] VITALS: O2SAT 87
[2019-07-16 14:31] LABS: NT Pro Brain Natriuretic Pep. 438 pg/mL (0-125)
--- NOTE | 2019-07-16 14:32 | PC.NURSE ---
PT SET UP FOR GUEST TRAY
--- NOTE | 2019-07-16 14:45 | CA_ITS ---
APPROVED REPORT EXAM: Comprehensive 2D, Doppler, and color-flow Echocardiogram Control Valve Technician: Patricia Henry CRT Ht: 5 ft 2 in Wt: 100lbs BSA: 1.42 BP: 93/60 mmHg Indications: COPD, SOB, home O2, pleural effusions on xray 2D Dimensions LVOT 1.93 cm (M/F) 1.5-2.5 M-Mode Dimensions RVDd 2.53 cm (0.9-2.6) LVDd 3.84 cm (3.5-5.7) LVDs 2.24 cm (3.5-5.7) IVSd 0.98 cm (0.6-1.1) PWd 0.64 cm (0.6-1.1) EF (Teich) 73.20% FS 41.70% EDV (Teich) 63.50 mL ESV (Teich) 17.00 mL Left Ventricle Left atrium is normal size, left ventricle is normal size, hyperdynamic left ventricular systolic function, visually estimated ejection fraction is over 65% with no regional wall motion abnormality. Diastolic parameters are inconclusive. Right Ventricle Right atrium right ventricle moderately enlarged with normal contractility. Aortic Valve Aortic valve is minimally thickened and fibrosed, there is no aortic stenosis or aortic insufficiency. Mitral Valve Mitral valve is grossly normal, there is mild mitral regurgitation. Tricuspid Valve Tricuspid valve is grossly normal, there is mild tricuspid regurgitation. Calculated right ventricular systolic pressure is 43 mmHg. Pulmonic Valve Pulmonic valve is poorly visualized. Great Vessels Aortic root is normal size. Pericardium No significant pericardial effusion noted. Conclusion 1. Normal left ventricular size, hyperdynamic left ventricular systolic function, visually estimated ejection fraction is over 65% with no regional wall motion abnormality, diastolic parameters are inconclusive. 2. Moderately enlarged right ventricle with normal contractility. 3. Mild mitral and tricuspid regurgitation, calculated right ventricular systolic pressure is 43 mmHg. 4. No significant pericardial effusion noted, inferior vena cava is normal size with normal inspiratory collapse. Electronically signed by : Ned Salazar, 07/17/2019 11:28:20
--- NOTE | 2019-07-16 14:45 | PC.NURSE ---
Called Luis spoke with monse, she stated that dr oneill was in a pt room and he would call us back.
--- NOTE | 2019-07-16 14:47 | PC.NURSE ---
Addendum entered by Rose Marie Escobar, EMT 07/16/19 14:50: speaking with Costa Bell, not Dr. Crespo Original Note: Dr Velasquez speaking with Dr Crespo at this time.
--- NOTE | 2019-07-16 15:00 | PC.NURSE ---
Rebecca Cortez at bedside.
[2019-07-16 15:01] LABS: Appearance,Urine SL CLOUDY (Clear); Bilirubin,Urine Negative (Negative); Blood, Urine Negative (Negative); Color,Urine YELLOW (Yellow); Glucose,Urine (UA) Negative (Negative); Ketones,Urine Negative (Negative); Leukocyte Esterase,Urine 2+ (Negative); Microscopic, Urine URINE MICROSCOPIC (MICROSCOPIC); Nitrate,Urine POSITIVE (Negative); Protein,Urine Negative (Negative); Specific Gravity, Urine 1.015 (1.005-1.030); Urobilinogen,Urine 0.2 EU/dl (0.2)
--- NOTE | 2019-07-16 15:05 | PC.NURSE ---
Dr Velasquez speaking with Dr Crespo at this time.
--- NOTE | 2019-07-16 15:11 | PC.NURSE ---
Echo lab at bedside
[2019-07-16 15:15] LABS: Bacteria,Urine 3+ /lpf
--- NOTE | 2019-07-16 15:46 | PC.NURSE ---
[facility] HERE TO DELIVERY PT OXYGEN TANK
[2019-07-16 16:14] VITALS: PULSE 110; O2SAT 98
[2019-07-16 17:22] VITALS: BP 93/60; PULSE 110; RESP 20; TEMP 37.3; O2SAT 98
== END 2019-07-16 17:24 | disposition home or self-care (01) ==
PROVIDERS: Emergency Provider Emergency Medicine; PCP Internal Medicine Adolescent Medicine
DX: N30.90 Cystitis, unspecified without hematuria (principal); J44.1 Chronic obstructive pulmonary disease with (acute) exacerbation; J96.11 Chronic respiratory failure with hypoxia; J96.12 Chronic respiratory failure with hypercapnia; Z99.81 Dependence on supplemental oxygen; Z79.899 Other long term (current) drug therapy
CPT/HCPCS: 71045; 80053; 81001; 82803; 83605; 83880; 84484; 85007; 85025; 87040; 87086; 87088; 87186; 93005; 93306; 96365; 99284